=== PATIENT | male | born 1980 | race Caucasian/White ===

== ENCOUNTER 2025-10-09 16:16 | Inpatient (IN) | payer OTHER, SELFPAY ==
[2025-10-09] VITALS (15 sets, daily range): BP systolic 110–138; BP diastolic 78–110
--- NOTE | 2025-10-09 13:07 | ED.GENMED ---
History of Present Illness
General
Chief Complaint: Chest Pain
Source: patient
Exam Limitations: none
Time Seen by Provider: 10/09/25 13:00
Nursing documentation reviewed up to this point in time: agreed with
History of Present Illness
History of Present Illness:
Note:
CHIEF COMPLAINT(S)
Chest pain
HISTORY OF PRESENT ILLNESS
The patient is a 48-year-old male who presents with complaints of chest pain. He reports that the pain started last week at night and has been persistent almost every day since then. He mentions that today, he visited his workplace, feeling the need
to leave due to the discomfort. Currently, he describes the pain as being located around his ribs, explaining that it particularly hurts when he rolls his head back against a board. He experiences no pain when the area is palpated, and he states
that he doesn�t experience chest pain continuously at the moment; instead, it presents with certain movements. The patient denies any pain at rest that is ongoing. He also reports some discomfort that feels like heartburn, though he is uncertain as
he has never had heartburn before. He has attempted self-medication with ibuprofen. He denies smoking or regular alcohol consumption and has presumably had prior electrocardiograms (EKGs).
PAST MEDICAL AND SURIGICAL HISTORY
The patient reports taking aspirin currently and has a vague mention of a family history concerning heart conditions involving his father, which might suggest some cardiac considerations in his background.
REVIEW OF SYSTEMS
- Cardiovascular: Reports episodic chest pain; describes discomfort around the rib area; pain is exacerbated with certain movements.
- Gastrointestinal: Reports symptoms resembling heartburn.
PHYSICAL EXAM
General: Alert, no acute distress.
Skin: Warm, dry.
Head: Normocephalic, atraumatic.
Neck: Supple, trachea midline.
Eyes, Ears, Nose, Mouth and Throat: Oral mucosa moist.
Cardiovascular: Normal peripheral perfusion, No edema.
Respiratory: Respirations are non-labored.
Gastrointestinal: Abdomen nondistended.
Back: Normal range of motion, Normal alignment.
Musculoskeletal: Normal range of motion, normal strength.
Neurological: Alert and oriented to person, place, time, and situation. No focal neurological deficit observed.
Psychiatric: Cooperative, appropriate mood and affect.
PLAN
Plans include performing another EKG as the initial one was slightly abnormal, leading to concern though not explicitly indicative of a myocardial infarction. Blood tests have been conducted, and the patient will be given aspirin for treatment.
DIFFERENTIAL DIAGNOSIS
The Differential Diagnosis includes, in no particular order and is not limited to:
1. Musculoskeletal chest pain
2. Gastroesophageal reflux disease (GERD)
3. Costochondritis
4. Angina
5. Myocardial infarction (though initially ruled unlikely with presented acute findings)
6. Pulmonary embolism
7. Pericarditis
8. Aortic dissection
9. Pneumothorax
10. Esophageal spasm
EKG
My independent EKG interpretation is:
- Rhythm: Sinus tachycardia
- Heart Rate: 130 bpm
- Occasional premature ventricular contractions (PVCs) noted
- [place]: Not specified
- No notable intervals provided ([place] interval, QRS duration, QT interval)
- No specific ST segment changes or T wave inversions mentioned
- Additional abnormalities noted: Possible 'civic-esque' abnormality, details not specified
Disposition:
SUMMARY OF ENCOUNTER
The patient presented to the emergency department with complaints of chest pain. An EKG was performed, which indicated sinus tachycardia with occasional premature ventricular contractions (PVCs). Due to concerns of a potential cardiac condition, a
cardiology evaluation was conducted by Dr. Nieves. Based on initial evaluations and the patients symptoms, the decision was made to admit the patient to the hospitals intensive vascular unit (IVU) under the hospitalist service for further
monitoring and management.
DISPOSITION
Admit to IVU, hospitalist service.
ASSESSMENT
The patients presentation is suggestive of a cardiovascular condition, possibly an acute coronary syndrome, requiring further evaluation and management in a hospital setting.
EMERGENCY TREATMENTS ADMINISTERED
Heparin was administered as part of the initial management to address potential thromboembolic risks.
MANAGEMENT OF THE PATIENTS CARE WAS DISCUSSED WITH
Consultation was carried out with Cardiology, specifically Dr. Zimmerman, for evaluation in the emergency department.
PLAN
The patient will be admitted to the intensive vascular unit for continuous monitoring. Further evaluations and interventions will be conducted based on the evolving clinical picture and cardiology recommendations.
MEDICAL DECISION MAKING
-Complexity of Data Reviewed: Chronic conditions affecting care. The differential diagnoses considered include musculoskeletal chest pain, gastroesophageal reflux disease (GERD), costochondritis, angina, myocardial infarction, pulmonary embolism,
pericarditis, aortic dissection, pneumothorax, and esophageal spasm.
-Data:
Category 1
My independent interpretation of EKG indicates sinus tachycardia with occasional PVCs.
Category 3
Discussion of management with Dr. Zimmerman, Cardiology, regarding further evaluation and management in the emergency department.
-Risk:
Prescription medication was administered (Heparin) and [id number] consultation due to the suspected acute coronary syndrome and the need for further monitoring in IVU.
DIAGNOSIS
NSTEMI
Past History
Past History
ED Past Medical History: None and Other (migraines. Has seen Dr. Morfin in the past)
Social History
Personal: Single
Living: with family
Employment: Employed
Phy Exam
Physical Exam
Physical Exam:
.
Scores
Heart Score for Chest Pain Patients
STEMI patient?: No
History: Highly Suspicious
ECG: Nonspecific Repolarization
Age: >45 - <65 years
Risk Factors: >/= 3 Risk Factors or History of CAD
Troponin: >/= 3 x Normal Limit
Heart Score for Chest Pain Patients: 8
Heart Score Risk: 72.7 % MACE over next 6 weeks
Course
Orders/Labs/Results
Orders:
Orders
10/09/25
Electrocardiogram (*1) Routine
Comment: DONE
Electrocardiogram (*1) Stat
Comment: DONE
10/09/25 12:28
EKG [Electrocardiogram (*1)] Urgent
Reason for Study: Chest Pain
EKG- Treatment ONCE
10/09/25 12:54
Complete Blood Count/With Diff Urgent
Comprehensive Metabolic Panel Urgent
Prothrombin Time Urgent
Troponin I Urgent
10/09/25 13:02
Electrocardiogram (*1) Urgent
EKG- Treatment ONCE
10/09/25 13:08
Aspirin Chewable [Low Strength Aspirin] 324 mg PO NOW STA
10/09/25 13:09
CR Chest Portable - 1 View Urgent
Comment:
Reason For Exam: right side chest pain, fall
Reason Study Needs to be Portable: Patient Unstable
10/09/25 13:42
EKG- Treatment ONCE
10/09/25 13:43
Electrocardiogram (*1) Urgent
10/09/25 14:10
Heparin 4,000 units IV NOW STA
Pharmacy Request to Place See Dose Instructions PO NOW STA
Discontinue all Active Warfarin orders?: Yes
Nursing to Place Non Medication Order As Directed
Physician Order: PTT 6 hours after initial start of Heparin infusion
10/09/25 14:15
Heparin 62117 Units/250 ml 25,000 units in 250 ml IV PER PROTOCOL
Weight to be used for heparin protocol in kilograms (kg):: 70
Protocol:: Cardiac Tx/Acute Coronary
PTT Goal Range to be used:: PTT 73 to 111 seconds
Order type:: Initial
INITIAL Infusion Dose (UNITS/KG/hr) & then follow protocol:: 15 units/kg/hr
Infusion Dose in UNITS/hr & then follow protocol (UNITS/hr):: 1,050
INFUSION RATE in mL/hr & then follow protocol (mL/hr):: 10.5
PTT less than or equal to 64 seconds:: Increase rate by 200 units/hr (+ 2 mL/hr)
PTT 64.1 to 72.9 seconds:: Increase rate by 100 units/hr (+ 1 mL/hr)
PTT 73 to 111 seconds:: Target Range. No change in rate.
PTT 111.1 to 130.9 seconds:: Decrease rate by 100 units/hr (- 1 mL/hr)
PTT 131 to 199.9 seconds:: HOLD for 1 hr. Then decrease rate by 200 units/hr (- 2 mL/hr)
PTT greater than or equal to 200 seconds:: HOLD for 2 hrs & Notify Provider. Then decrease by 200 units/hr (-
2 mL/hr)
Lab follow-up:: Each change, PTT q6h until 2 consecutive are therapeutic. Then PTT
daily.
10/09/25 14:33
CARDIOLOGY CONSULT Routine
Consulting Provider: Talib Nieves
Was physician already notified: Yes
10/09/25 14:43
PTT Urgent
Comment: Obtain baseline before beginning heparin infusion if not already collected
10/09/25 15:[address] See Dose Instructions IV DIRECTED
10/09/25 15:32
Admit/Transfer Patient As Directed
Co-Sign Provider:
Level of Care: Inpatient admission
Assign to:: IVU
Physician / Group: Hospitalist
Diagnosis: NSTEMI
Reason for Hospitalization: NSTEMI
Expected length of stay greater than two midnights?: Yes
ELOS- Estimated Length of Stay in days: 3
I certify the patient meets the requirements for IP care: Yes
PRN Pain Medication Management As Directed
May give lesser potent ordered pain med per pt: Yes
preference::
Protocol:: Medication orders for pain may be administered in a
manner that supports deferring to patient preference
when the pt is:
- Requesting an ordered lesser potent pain medication.
Least to most potent pain medications are defined
as: acetaminophen < NSAID < tramadol < opioids
(morphine, oxycodone, hydromorphone).
- Requesting a lesser dose of the same medication IF
ORDERED.
- Requesting a less intrusive route of administration
if both routes are prescribed by the provider (PO <
IV).
10/09/25 15:35
Code Status As Directed
Resuscitation Status: Full Code
10/09/25 15:38
Urine Drug Abuse Screen Routine
Abnormal Lab Results
10/09/25
12:54
RBC 4.64 L 10^6/uL
(4.70-6.10)
MCH 31.5 H pg
(27.0-31.0)
Absolute Neuts (auto) 6.8 H 10^3/uL
(1.4-6.5)
Absolute Monos (auto) 0.7 H 10^3/uL
(0.1-0.6)
Troponin I 0.566 H* ng/ml
10/09/25 12:54
10/09/25 12:54
Vital Signs
Initial and Last Documented VS:
Initial Vital Signs
Temp Pulse Resp BP Pulse Ox
98.5 F 86 16 132/97 100
10/09/25 12:35 10/09/25 12:35 10/09/25 12:35 10/09/25 12:35 10/09/25 12:35
Last Documented Vital Signs
Temp Pulse Resp BP Pulse Ox
98.5 F 72 17 120/88 98
10/09/25 12:35 10/09/25 14:00 10/09/25 14:00 10/09/25 14:00 10/09/25 14:00
*Pulse Oximetry
SaO2: 100
Oxygen Mode of Delivery: Room air
Patient hypoxic: no
*Critical Care Note
Total Time (30-74mins, 75-104mins- exclusive of procedures): 30
comment:
Critical care statement: A total of 30 minutes of critical care time was provided for this patient. This includes management of unstable vital signs, evaluation of the patient at bedside, reviewing the patient's pertinent medical records, discussion
with consultants, review of old EKGs and review of pertinent medical records. This time with separate from time utilized to perform the aforementioned documented procedures
ED Attending Note
-
Portions of this chart may have been created with voice recognition software.� Occasional wrong word or��sound alike� substitutions may have occurred due to the inherent limitations of voice recognition software.
Discharge Plan
Departure
Patient Disposition: Admit
Date of Disposition: 10/09/25
Time of Disposition: 13:48
Admit to: IVU
Presentation/result/management discussed w/ accepting MD/DO: Hospitalist
Patient with high blood pressure during this ER visit?: Yes
Condition: Fair
Discharge Problem:
Acute non-ST elevation myocardial infarction (NSTEMI)
Prescriptions:
No Action
ibuprofen [Advil] 200 mg Tablet
40 mg PO BIDPRN PRN (Reason: mild pain)
omeprazole 20 mg Tablet,Delayed Release (Dr/Ec)
40 mg PO DAILYPRN PRN (Reason: gerd)
Referrals:
NONE,* [Family Provider, Internal Medicine]
Interventions
Interventions:
*Risk Screen - Suicide Last Done: 10/09/25 12:35
*General Assessment Last Done: 10/09/25 12:35
*Neglect/Abuse Screening Last Done: 10/09/25 12:35
[facility] Risk Assessment Tool Last Done: 10/09/25 12:27
ED- Cardiac Assessment Last Done: 10/09/25 14:15
Discharge Date and Time
Print Language: CYPRIOT
[2025-10-09 13:12] LABS: Hematocrit 42.3 % (39.0-52.0); Hemoglobin 14.6 g/dL (13.0-18.0); Mean Corp Hgb Conc. 34.5 g/dL (33.0-37.0); Mean Corpuscular Volume 91.2 fL (80.0-94.0); Nucleated Red Blood Cells % 0 % (-); Platelet Count 282 10^3/uL (130-400); Red Cell Dist. Width 13.3 % (11.5-14.5)
[2025-10-09 13:21] LABS: INR 0.95; PT 12.8 Sec (11.4-14.6)
[2025-10-09 13:26] LABS: ALT (SGPT) 20 U/L (0-50); AST (SGOT) 29 U/L (17-59); Albumin 4.5 g/dl (3.5-5.0); Alkaline Phosphatase 99 U/L (38-126); Blood Urea Nitrogen 10 mg/dl (9-20); Calcium 9.1 mg/dl (8.4-10.2); Carbon Dioxide 27 mmol/L (22-30); Chloride 103 mmol/L (98-107); Glucose 93 mg/dl (70-99); Potassium 4.3 mmol/L (3.5-5.1); Sodium 137 mmol/L (135-145); Total Protein 7.4 g/dl (6.3-8.2); eGFR > 60.00
[2025-10-09] MEDS: LOW STRENGTH ASPIRIN 324 MG PO (13:29)
[2025-10-09 13:41] LABS: Troponin I 0.566 ng/ml
--- NOTE | 2025-10-09 14:41 | CON.CAR ---
Addendum entered and electronically signed by Talib Nieves MD 10/09/25 15:48:
I saw and examined the patient.
The REAL ESTATE REP or PA's note was reviewed and I agree with the note.
Comment: General: Well developed, well nourished in NAD.
Neck: Supple, no JVD, HJR, carotids +2 B/L, no bruits bilaterally.
Heart: Non displaced PMI, RRR, no murmurs, No S3, S4, no rubs.
Lungs: Clear to auscultation bilaterally, no wheeze, rhonchi, rubs bilaterally,
normal expiratory phase.
Extremities: No clubbing, cyanosis or edema bilaterally.
Neuro: Grossly nonfocal, awake, alert and oriented x3
Guido has a history of tobacco abuse, family history of CAD. He presents with chest discomfort radiating to his throat. He left work twice this week due to discomfort. He felt poorly today and went to work and went to the hospital for evaluation.
Troponin was 0.566.
He presents with unstable angina and non-STEMI. ECG with anterior ST-T wave changes. Explained risk benefits of catheterization and stenting in detail and agrees to proceed. He has been started on IV heparin and is pain-free. Manual treatment
depend results of catheterization. Discussed with primary service and ER attending. Discussed with patient's mother at bedside who is an OB nurse at [employer]
Original Note:
Medical History
-
Chief Complaint: Chest pain
History of Present Illness:
45-year-old male, smoker, family history of CAD, depression as a teenager, presents with 1 week history of intermittent chest pain described as substernal pressure radiating to throat. No associated symptoms. Denies pain triggered by exertion.
Has left work twice this week due to discomfort from pain and thought about coming to ED last night but then felt better. Woke up today and had recurrent substernal CP radiating to throat and presented to ED. He was able to ride his bike to
hospital without worsening symptoms. He was administered aspirin 324 mg. Troponin 0.566. EKG: Normal sinus rhythm anterolateral ST abnormality-? Brugada pattern. Heparin drip started. Patient currently chest pain-free.
Past medical history
Depression as teenager with inpatient admission
Current smoker including cigarettes, vape, marijuana
Alcohol use
Past Medical History
Past Medical History: Other
Past Surgical History: None
Social History
Tobacco: Vaping
Alcohol: Binge Drinker (10-12 beers on weekends)
Drug: Marijuana
Employment: Employed ([employer])
Allergies / Home Medications
Allergy/AdvReac Type Severity Reaction Status Date / Time
bees Allergy Swelling Uncoded 10/09/25 12:35
�Medication �Instructions �Recorded �Confirmed �Type
ibuprofen 200 mg tablet (Advil) 40 mg PO BIDPRN PRN mild pain 10/09/25 10/09/25 History
omeprazole 20 mg tablet,delayed 40 mg PO DAILYPRN PRN gerd 10/09/25 10/09/25 History
release
Review of Systems
-
History Source: Patient
All other systems: Negative unless noted
Physical Exam
Vital Signs
Temp Pulse Resp BP Pulse Ox
98.5 F 72 17 120/88 98
10/09/25 12:35 10/09/25 14:00 10/09/25 14:00 10/09/25 14:00 10/09/25 14:00
Lab Results
10/09/25 12:54
10/09/25 12:54
Troponin I 0.566 ng/ml H* 10/09/25 12:54
GEN: No distress, awake, Ox3
HEENT: supple, anicteric, mmm
LUNGS: ?rales at bases
CV: Reg, S1/S2, no murmur
ABD: soft, BS+, NT/ND
EXT: No edema
NEURO: Gross non-focal
SKIN: No rash
Impression / Plan
-
PCP:
Does not follow with cardiology
Impression:
NSTEMI
1 week history of chest pain radiating to neck
Elevated troponin
Abnormal EKG
Current smoker including cigarettes, vaping, marijuana
Alcohol use with binge drinking
Family history CAD
Former depression
Plan:
45-year-old male with 1 week history of intermittent substernal chest pressure radiating to throat with increasing frequency. Not associated with exertion. Presented to ED today and troponin elevated with non-ST elevation EKG abnormalities on EKG.
- Aspirin 324 mg administered in ED
- Heparin drip started
- N.p.o. for left heart cath today
- Currently chest pain-free
- Counseling on smoking cessation and alcohol reduction
-check FLP
-EKG with questionable Brugada pattern - discuss with EP
Data Reviewed
-
EKG: Tracing Personally Visualized and interpreted
Medical Tests (Nuc Med, Echo etc): Image Personally Visualized and interpreted
Labs: Labs Reviewed by me
[2025-10-09 15:00] LABS: APTT 28.6 Sec (23.4-35.0)
[2025-10-09] MEDS: HEPARIN 25000 UNITS/250 ML IV (15:17)
[2025-10-09] MEDS: HEPARIN 4000 UNITS IV (15:17)
--- NOTE | 2025-10-09 15:43 | HPS.HSE ---
Addendum entered and electronically signed by Rola Boswell MD 10/09/25 16:27:
Pt seen with residents.
HPI: 45-year-old male with past medical history of anxiety and migraines presented to the ED with recurrent chest discomfort, started about 1 week [employer].
He described the pain in the center of his chest, non-radiating, with episodes lasting anywhere from 5 minutes to many hours. He tried to get some Prilosec because he thought his symptoms were caused by GERD.
He presented to the ED due to worsening chest discomfort.
A/P:
# Chest discomfort concern for ACS
Admission troponin at 0.566, cont to trend until peak
EKG showed ST, T wave changes
s/p loading dose of aspirin
Cont heparin drip
Card on board, plan for cardiac cath
Check echo
Check Lipid panel
Check UDS for completeness sake
# Right flank pain likely MSL from recent fall onto a stack of firewood while he was chopping outside
Bruise noted on right flank and pain reproducible with palpation. Vitals are stable and patient looks comfortable
Agree with lidocaine patch over bruised area
DVT - Heparin drip currently
Full Code
Original Note:
Family Physician
-
Family Physician: * NONE
Chief Complaint
-
Chest pressure
History of Present Illness
45-year-old male with past medical history of anxiety and migraines presents to the ED with chest discomfort. He had his first episode of his chest discomfort last week. They started to come and go not associated with exercise. Yesterday afternoon,
he had the chest pressure the entire afternoon. He described the pain in the center of his chest, non-radiating, with episodes lasting anywhere from 5 minutes to many hours. He cannot give a number on a scale of 1-10 because it is so 'weird.'
Stretching and leaning back makes it feel better. Nothing he has noticed made it worse. Yesterday, he tried to get some Prilosec because he thought his symptoms were caused by GERD. This morning, the pain recurred and after he arrived at work, he
decided to come in to the ED because the pressure was persistent.
Of note, the patient recently fell while cutting wood in his back yard and bruised his right flank. He states his back pain is reproducible with palpation and feels musculoskeletal.
In the ED, he said his pain went away. His vitals were stable, troponin was 0.566 and EKG showed some small ST elevations in V1-V3 and T wave inversions. He was given a loading dose of aspirin, started on a heparin drip and cardiology was consulted
for possible NSTEMI.
Medical History
Past Medical History
Past Medical History: Reports Other (anxiety, migraines )
Past Surgical History: Reports None
Social History
Tobacco: Smoker (1 ppd since age 14)
Alcohol: Binge drinker (Binge on weekends, not during the week )
Drug: Marijuana and Other (No cocaine or other)
Employment: Employed ([employer] )
Family History
Family History: Other (Father - [place] age 42, HLD. Brother - lung cancer. Sister - HLD, )
Allergies / Home Medications
Allergies reflects when Allergies were last updated in [facility].
Home Medications with original date entered in [facility]
Allergy/Medication List:
Allergies
Allergy/AdvReac Type Severity Reaction Status Date / Time
bees Allergy Swelling Uncoded 10/09/25 12:35
Home Medications
ibuprofen 200 mg tablet (Advil) 40 mg PO BIDPRN PRN mild pain 10/09/25
omeprazole 20 mg tablet,delayed release 40 mg PO DAILYPRN PRN gerd 10/09/25
Review of Systems
-
History Source: Patient
Constitutional: Reports No Symptoms
EENT: Reports No Symptoms
Respiratory: Reports No Symptoms
Cardiac: Reports Chest Pain
Abdomen/GI: Reports No Symptoms
: Reports No Symptoms
Musculoskeletal: Reports Muscle Pain (Right flank )
Neurological: Reports No Symptoms
Psych: Reports No Symptoms
Physical Exam
Vital Signs
Vital Signs
Temp Pulse Resp BP Pulse Ox
98.5 F 72 17 120/88 98
10/09/25 12:35 10/09/25 14:00 10/09/25 14:00 10/09/25 14:00 10/09/25 14:00
Physical Exam
General: No Apparent Distress
HEENT: NormoCephalic
Respiratory: Clear
Cardiac: S1/S2, Regular Rhythm and Other (No carotid bruits appreciated )
GI: Soft, Non Tender, Non Distended and Normal Bowel Sounds
Musculoskeletal: No Cyanosis, No Edema and Other (Bruise on right flank, pain reproducible on palpation)
Skin: Warm and Dry
Neuro: AO x 3
Psych: Calm
Laboratory Results
-
10/09/25 12:54
10/09/25 12:54
Laboratory Results
PT 12.8 Sec (11.4-14.6) 10/09/25 12:54
INR 0.95 10/09/25 12:54
APTT 28.6 Sec (23.4-35.0) 10/09/25 14:43
Total Bilirubin 0.5 mg/dl (0.2-1.3) 10/09/25 12:54
AST 29 U/L (17-59) 10/09/25 12:54
ALT 20 U/L (0-50) 10/09/25 12:54
Alkaline Phosphatase 99 U/L (38-126) 10/09/25 12:54
Troponin I 0.566 ng/ml H* 10/09/25 12:54
Impression/Plan
-
IMPRESSION:
45-year-old male with no significant past medical history presenting with chest pain, elevated troponin and abnormal EKG concerning for NSTEMI.
PLAN:
NSTEMI
-- Substernal chest pressure, troponin 0.566, slight ST elevation in anterior leads with T wave inversions
-- Heparin drip started in ED
-- Loading dose of aspirin provided
-- Cardiology consulted
-- Admit to IVU
-- Trend troponins
-- Trend EKGs
-- Cardiac echo
-- UDS
-- Lipid panel
-- NPO for cath
-- Likely cardiac cath this afternoon
Right flank pain
-- Recent fall onto a stack of [employer] while he was chopping outside
-- Bruise noted on right flank and pain reproducible with palpation
-- Vitals are stable and patient looks comfortable -incredibly low clinical suspicion for aortic dissection
-- Lidocaine patch over bruised area
DVT - Heparin drip
Full Code
NPO
--- NOTE | 2025-10-09 16:37 | CM ---
Addendum entered by Bella Wise RN 10/09/25 16:59:
[facility] in [place] has it in stock. I will place it in the patient's profile
Original Note:
Pricing on Brilinta through the patient's medicaid plan, ID#[id number] # [phone], is covered at $0 copay. Brilinta is preferred brand. It is currently not in stock at the patient's [facility] and will not be available until Sunday if
called in today
[2025-10-09 16:59] LABS: ACT-LR - POC 256 Seconds (116-155)
[2025-10-09 17:07] LABS: ACT-LR - POC 314 Seconds (116-155)
[2025-10-09] MEDS: EFFIENT 60 MG PO (17:30)
[2025-10-09 17:34] LABS: ACT-LR - POC 292 Seconds (116-155)
--- NOTE | 2025-10-09 17:56 | ITS.CL.CATH ---
Addendum entered and electronically signed by Ester Moyer MD 10/09/25 22:24:
Addendum:
Right coronary artery (RCA): Large caliber dominant vessel with minimal luminal irregularities.
HM
Original Note:
[employer] Sales Counter Manager - Catheterization
Cardiac Catheterization
Procedure Report:
LEFT HEART CATHETERIZATION AND CORONARY INTERVENTION
Date of Procedure: October 09, 2025
Referring: Talib Nieves MD
PROCEDURES:
1. Left heart catheterization, coronary angiogram.
2. Moderate sedation.
3. Successful percutaneous coronary artery intervention of a hazy 80% proximal LAD stenosis (KEITH III, type B) with one 3.5 x 12 mm Medtronic [place] frontier drug-eluting stent, postdilated using IVUS guidance with 3.5mm NC balloon at high pressure
with an excellent angiographic result.
4. Intravascular ultrasound (IVUS)
INDICATION: NSTEMI
ACCESS: Right radial artery, 6Fr. sheath, under US guidance.
HEMODYNAMICS : (mmHg)
AO (s/d) : 105/69
LVEDP : 14
No significant gradient across the aortic valve to suggest aortic stenosis.
CORONARY FINDINGS
Dominance: Right
Left Main Trunk (LMT):� Large caliber vessel that gives rise to the LAD, ramus intermedius and LCx branches and is free of angiographic disease.
Left Anterior Descending Artery (LAD):� Large caliber vessel that gives off a medium caliber first major diagonal and a large caliber scdon diagonal branches as it courses along the anterior inter-ventricular groove before wrapping around the
cardiac apex. The proximal LAD has a hazy 80% stenosis which is likely culprit for presenting NSTEMI.
Ramus intermedius: Large caliber vessel with proximal 30-40% stenosis.
Left Circumflex Artery (LCx):� Medium caliber vessel that gives off a several small caliber obtuse marginals, a medium caliber OM and small posterolateral branches.� The LCx has mild luminal disease
CORONARY INTERVENTION: We then proceeded with PCI of the LAD.� An EBU 3.75 guide catheter was positioned at the origin of the left main and an 0.014� RunThrough wire was navigated into the distal LAD.� The severe 80% stenosis (KEITH III, type B) was
pre-dilated with a 3.0 balloon and then stented with a 3.5 x 18 mm Seward [place] drug-eluting stent that was post-dilated with a 3.5 mm NC balloon. We then performed intravascular ultrasound that showed excellent stent apposition and expansion
without proximal or distal edge dissection. There was 0% residual stenosis of the stented segment and preserved KEITH III flow at completion angiography.
SEDATION: 47 minutes of procedural sedation was utilized. IV Midazolam and IV Fentanyl were administered. An independent medical support assistant was present to assist with and help manage the patient's level of consciousness and physiologic status.
RADIATION SUMMARY: Fluoro Time (min): 11.4, Dose (mGy): 378.7, DAP (Gy.cm2) : 19.7
Closure Device: There were no immediate intra-procedural complications. The sheath was pulled in the golf course laborer and a vascular-band applied to the right wrist for radial artery hemostasis using the patent hemostasis technique.
CONCLUSIONS
1. Successful percutaneous coronary artery intervention of a hazy 80% proximal LAD stenosis (KEITH III, type B) with one 3.5 x 12 mm Medtronic [place] frontier drug-eluting stent, postdilated using IVUS guidance with 3.5mm NC balloon at high pressure
with an excellent angiographic result.
2. LVEDP 14mmHG
RECOMMENDATIONS
1. Wean radial band per protocol. Monitor right hand perfusion and for bleeding from the radial site following removal of the vascular-band following trans-radial access.
2. Continue aggressive medical therapy and risk factor modification for secondary CAD prevention.
3. Continue ASA 81 mg daily for life.
4. Continue Prasugrel for at least 12 months of uninterrupted dual anti-platelet therapy given drug-eluting stent (RAQUEL) implantation to mitigate the risk of stent thrombosis. This is not to be stopped for any reason without the guidance of a
button and buckle maker.
5. Hydrate with normal saline to mitigate the risk of contrast-induced acute kidney injury.
6. Referral for outpatient cardiac rehab.
7. Echo to assess biventricular function.
Ester Moyer MD, FACC, [facility]
Copy to: Talib Nieves MD
[2025-10-09 18:09] LABS: Troponin I 1.200 ng/ml
[2025-10-09] MEDS: LIDOCAINE 4% PATCH 1 PATCH TOPICAL (18:46)
[2025-10-09] MEDS: LIPITOR 80 MG PO (18:53)
--- NOTE | 2025-10-09 19:13 | PTCARENOTE ---
Pt received post cath at 1755. Right radial band intact, site WNL. Denies any chest pain or sob. Room air sat 97%. C/o of back pain with movement from a recent fall. Lidocaine patch placed as ordered. SR, rate in the 70's to 80's.
[2025-10-09 20:47] LABS: HDL Cholesterol 72 mg/dl; LDL Cholesterol, Calculated 80 mg/dl; Very Low Density Lipoprotein 20 mg/dl (0-30)
[2025-10-10 00:54] LABS: Troponin I 1.670 ng/ml
[2025-10-10 05:25] VITALS: BP 124/90
[2025-10-10] MEDS: REMOVE LIDOCAINE PATCH 1 PATCH REMOVE (05:32)
[2025-10-10 05:40] LABS: Hematocrit 38.7 % (39.0-52.0); Hemoglobin 13.5 g/dL (13.0-18.0); Mean Corp Hgb Conc. 34.9 g/dL (33.0-37.0); Mean Corpuscular Volume 90.0 fL (80.0-94.0); Platelet Count 241 10^3/uL (130-400); Red Cell Dist. Width 13.3 % (11.5-14.5)
--- NOTE | 2025-10-10 06:06 | PTCARENOTE ---
Pt NSR on monitor, VSS. Pt Denies chest pain. abnormal EKG reported to ADJUNCT PSYCHOLOGY FACULTY MEMBER
[2025-10-10 06:16] LABS: ALT (SGPT) 17 U/L (0-50); AST (SGOT) 26 U/L (17-59); Albumin 4.0 g/dl (3.5-5.0); Alkaline Phosphatase 93 U/L (38-126); Blood Urea Nitrogen 20 mg/dl (9-20); Calcium 8.8 mg/dl (8.4-10.2); Carbon Dioxide 20 mmol/L (22-30); Chloride 105 mmol/L (98-107); Estimated Creatinine Clearance 89 ml/min; Glucose 102 mg/dl (70-99); Potassium 4.1 mmol/L (3.5-5.1); Sodium 134 mmol/L (135-145); Total Protein 6.7 g/dl (6.3-8.2); Troponin I 1.320 ng/ml; eGFR > 60.00
[2025-10-10 07:07] VITALS: BP 116/84
[2025-10-10 08:23] LABS: Glycohemoglobin (HgbA1c) 5.4 % (4.0-5.9)
[2025-10-10] MEDS: PROTONIX 40 MG PO (08:33)
[2025-10-10] MEDS: LOW STRENGTH ASPIRIN 81 MG PO (08:33)
[2025-10-10] MEDS: TYLENOL 1000 MG PO (08:34)
[2025-10-10] MEDS: EFFIENT 10 MG PO (09:02)
--- NOTE | 2025-10-10 09:53 | W.PN.HOSP.TC ---
Addendum entered and electronically signed by Rola Boswell MD 10/10/25 16:44:
Total DC time 40 minutes
Addendum entered and electronically signed by Rola Boswell MD 10/10/25 15:26:
Discussed case with resident
HPI: 45-year-old male with past medical history of anxiety and migraines presented to the ED with recurrent chest discomfort, started about 1 week ORE CHARGER.
He described the pain in the center of his chest, non-radiating, with episodes lasting anywhere from 5 minutes to many hours. He tried to get some Prilosec because he thought his symptoms were caused by GERD.
He presented to the ED due to worsening chest discomfort.
A/P:
# Chest discomfort 2/[address], T wave changes
troponin peaked at 1.6
s/p cath 10/09: showed 80% LAD stenosis, s/p PCI
Cont DAPT ASA with Prasugrel per Card for at least 12 months
Extensive counseling regarding smoking cessation. Patient declined outpatient nicotine therapy
Patient was started with empiric Lipitor 80 mg, continue going forward
LDL noted at 80
# Right flank pain likely MSL from recent fall onto a stack of firewood while he was chopping outside
Bruise noted on right flank and pain reproducible with palpation. Vitals are stable and patient looks comfortable
Agree with lidocaine patch over bruised area
Original Note:
Today's Communication/Plan
-
Discharged on prasugrel, aspirin and atorvastatin with instructions to follow-up with cardiology and smoking cessation
Assessment / Plan
Assessment / Plan
IMPRESSION:
45-year-old male with no significant past medical history presenting with chest pain, elevated troponin and abnormal EKG concerning for NSTEMI.
PLAN:
NSTEMI
-- Substernal chest pressure, troponin 0.566, slight ST elevation in anterior leads with T wave inversions
-- Heparin drip started in ED
-- Loading dose of aspirin provided
-- Cardiology consulted
-- Admit to IVU
-- Echo revealed 55% ejection fraction with mid anteroseptal, anterior, and inferoapical hypokinesis
-- Cardiac cath revealed 80% stenosis of LAD -drug-eluting stent placed
-- Prasugrel for the next 12 months, aspirin daily indefinitely
-- Started on atorvastatin 80
-- LDL was surprisingly not significantly elevated at 80, Hga1c 5.4
-- Smoking cessation highly emphasized - he is not interested in a nicotine patch or gum at this time - he emphasized that he plans to quite on his own.
-- Discharge today with instructions to follow-up with cardiology
Right flank pain
-- Recent fall onto a stack of firewood while he was chopping outside
-- Bruise noted on right flank and pain reproducible with palpation
-- Vitals are stable and patient looks comfortable -incredibly low clinical suspicion for aortic dissection
-- Lidocaine patch over bruised area
DVT - SCD
Full Code
Anticipated Discharge: Today
Subjective/Interval History
-
Date of Service: October 10, 2025
Had a difficult time sleeping overnight due to his back pain.
Objective Data
-
Labs:
Laboratory Results
10/10/25
05:28
WBC 9.5
Hgb 13.5
Hct 38.7 L
Plt Count 241
Sodium 134 L
Potassium 4.1
Chloride 105
Carbon Dioxide 20 L
BUN 20
Creatinine 1.0
Glucose 102 H
Calcium 8.8
Total Bilirubin 0.5
AST 26
ALT 17
Alkaline Phosphatase 93
Vital Signs:
Vital Signs
Temp Pulse Resp BP Pulse Ox
98.1 F 74 18 116/84 98
10/10/25 07:08 10/10/25 07:30 10/10/25 07:08 10/10/25 07:07 10/10/25 08:36
I&O
10/09/25 10/10/25 10/11/25
06:59 06:59 06:59
Intake Total 400 / 400
Balance 400 / 400
Review of Systems
-
History Source: Patient
Respiratory: Reports No Symptoms
Cardiac: Reports No Symptoms
Abdomen/GI: Reports No Symptoms
Musculoskeletal: Reports Muscle Pain
Neuro: Reports No Symptoms
Physical Exam
-
General: No Apparent Distress
HEENT: Normocephalic
Respiratory: Clear to Auscultation
Cardiac: Regular Rhythm and S1/S2
GI: Soft, Nontender, Nondistended and Normal Bowel Sounds
Musculoskeletal: No Clubbing and No Cyanosis
Skin: Warm and Dry
Neuro: AO x 3
Psych: Calm
--- NOTE | 2025-10-10 11:43 | W.PN.CARDCBS ---
Addendum entered and electronically signed by Talib Nieves MD 10/10/25 12:23:
I saw and examined the patient.
The CARE TRANSITIONS MANAGER or PA's note was reviewed and I agree with the note.
Comment: General: Well developed, well nourished in NAD.
Neck: Supple, no JVD, HJR, carotids +2 B/L, no bruits bilaterally.
Heart: Non displaced PMI, RRR, no murmurs, No S3, S4, no rubs.
Lungs: Clear to auscultation bilaterally, no wheeze, rhonchi, rubs bilaterally,
normal expiratory phase.
Extremities: No clubbing, cyanosis or edema bilaterally.
Neuro: Grossly nonfocal, awake, alert and oriented x3.
Stable cardiology status for discharge. Echocardiogram with normal LV function and regional wall motion as noted on report. He is advised to be compliant with medications. Follow-up has been arranged. Discussed with primary service
Original Note:
Today's Communication / Plan
-
Continue DAPT with prasugrel and aspirin, uninterrupted x 1 year status post new proximal LAD RAQUEL
Post NM echo with preserved LV function
Cardiac rehab
cardiology f/u arranged
Impression / Plan
-
PCP:
No prior rivet tester
Impression:
NSTEMI
Status post proximal LAD stent
CAD
Abnormal EKG
Current smoker including cigarettes, vaping, marijuana
Alcohol use with binge drinking
Family history CAD
Former depression
Plan:
45-year-old male with 1 week history of intermittent substernal chest pressure radiating to throat with increasing frequency. Presented to ED 10/10/2025 and troponin elevated. Diagnosed non-ST elevation NM. Peak troponin 1.6. Urgent cath
10/10/2025 revealed 80% proximal LAD stenosis, likely culprit lesion for non-ST elevation NM. Also had 30 to 40% disease in proximal ramus
-Continue aspirin 81 mg daily for life
-Continue prasugrel 10 mg daily for at least 12 months of uninterrupted dual antiplatelet therapy to reduce risk of stent thrombosis. Patient advised that he should consult with rivet tester if ever asked to stop antiplatelets.
-PPI on DAPT
-Atorvastatin 80 mg daily started with goal LDL less than 55. LDL 80 prior to starting lipid-lowering therapy
-Post NM echo with normal LV function, EF 55%, mild anterior septal, anterior, and inferior apical hypokinesis
-Telemetry personally reviewed: Normal sinus rhythm 60-70 bpm
-manually calculated QTc on 12 lead EKG from [id number]
- Counseling on smoking cessation and alcohol reduction
-Cardiac rehab advised and saw patient this morning
-f/u arranged at [facility] 10/26/25
Progress Note - Ladies Suit Operator
Subjective
Date of Service: October 10, 2025
Denies chest pain
Objective
Labs:
10/10/25 05:28
10/10/25 05:28
Labs
Hgb 13.5 g/dL (13.0-18.0) 10/10/25 05:28
Hct 38.7 % (39.0-52.0) L 10/10/25 05:28
Plt Count 241 10^3/uL (130-400) 10/10/25 05:28
PT 12.8 Sec (11.4-14.6) 10/09/25 12:54
INR 0.95 10/09/25 12:54
APTT 28.6 Sec (23.4-35.0) 10/09/25 14:43
Sodium 134 mmol/L (135-145) L 10/10/25 05:28
Potassium 4.1 mmol/L (3.5-5.1) 10/10/25 05:28
BUN 20 mg/dl (9-20) 10/10/25 05:28
Creatinine 1.0 mg/dL (0.7-1.3) 12/13/25 05:28
Glucose 102 mg/dl (70-99) H 10/10/25 05:28
Troponins
10/09/25 10/09/25 10/09/25
12:54 17:28 17:49
Troponin I 0.566 H* 1.200 H* D Cancelled
10/10/25 10/10/25 10/10/25
00:05 05:28 06:00
Troponin I 1.670 H* D 1.320 H* Cancelled
10/10/25 10/10/25
07:10 11:49
Troponin I Cancelled Cancelled
Vital Signs and I&O:
Vital Signs
Temp Pulse Resp BP Pulse Ox
98.1 F 74 18 116/84 98
10/10/25 07:08 10/10/25 07:30 10/10/25 07:08 10/10/25 07:07 10/10/25 08:36
Vital Signs
Temp Pulse Resp BP Pulse Ox
98.1 F 74 18 116/84 98
10/10/25 07:08 10/10/25 07:30 10/10/25 07:08 10/10/25 07:07 10/10/25 08:36
Intake & Output
10/08/25 10/09/25 10/10/25 10/11/25
06:59 06:59 06:59 06:59
Intake Total 400 / 400
Balance 400 / 400
Physical Exam
Physical Exam
GEN: No distress, awake, Ox3
HEENT: supple, anicteric, mmm
LUNGS: CTA, no wheezes/rales
CV: Reg, S1/S2, no murmur
ABD: soft, BS+, NT/ND
EXT: No edema
NEURO: Gross non-focal
SKIN: No rash
[2025-10-10 11:48] VITALS: BP 123/79
[2025-10-10 13:52] VITALS: BP 128/94
--- NOTE | 2025-10-10 14:46 | PTCARENOTE ---
Pt c/o right posterior rib pain which improved well with tylenol. Pt walked around unit with RN without problem. Pt seen by DR.s Nieves and Akash. Pt given CAD information. Telemetry and IV device removed. Discharge instructions reviewed with pt
and his mother regarding activity and driving restrictions, wound care, medications and their possible side effects, smoking cessation, reporting cares and concerns and follow up appt's. Very good understanding verbalized. Pt escorted out via
wheelchair and discharged to home.
--- NOTE | 2025-10-10 16:22 | W.DCSUMMARY ---
Documented by User: Va Bustos MD, Resident 10/10/25 16:29
Discharge Summary
Discharge Data
Date of Admission: 10/09/25
Date of Discharge: 10/10/25
-
Pending Results: No
Hospital Course
Primary diagnosis:
NSTEMI
Hospital course:
45-year-old male with no significant past medical history presented to the ED with persistent chest discomfort. It started about a week prior with episodes progressively getting worse. In the ED, he was found to have an elevated troponin of 0.[address] changes in V1 through V3. He was provided loading dose of aspirin, started on heparin drip and cardiology was consulted for possible NSTEMI. He was taken for echo which revealed 55% EF with mid anteroseptal, anterior and inferior
apical hypokinesis. He underwent a cardiac cath which revealed 80% stenosis of LAD and a drug-eluting stent was placed. He was started on prasugrel, aspirin and atorvastatin. LDL was 80 and hemoglobin A1c was 5.4. He has a family history of
early cardiac events with his father having an MT at 42 and he is an avid smoker.
Today, patient is clinically stable for discharge. He has been started on aspirin indefinitely, prasugrel for the next 12 months and atorvastatin. He has been instructed to follow-up with cardiology for further evaluation and instructed on the
importance of smoking cessation.
Imaging:
Cardiac catheterization 10/09/25:
CONCLUSIONS
1. Successful percutaneous coronary artery intervention of a hazy 80% proximal LAD stenosis (KEITH III, type B) with one 3.5 x 12 mm Medtronic [place] frontier drug-eluting stent, postdilated using IVUS guidance with 3.5mm NC balloon at high pressure
with an excellent angiographic result.
2. LVEDP 14mmHG
RECOMMENDATIONS
1. Wean radial band per protocol. Monitor right hand perfusion and for bleeding from the radial site following removal of the vascular-band following trans-radial access.
2. Continue aggressive medical therapy and risk factor modification for secondary CAD prevention.
3. Continue ASA 81 mg daily for life.
4. Continue Prasugrel for at least 12 months of uninterrupted dual anti-platelet therapy given drug-eluting stent (RAQUEL) implantation to mitigate the risk of stent thrombosis. This is not to be stopped for any reason without the guidance of a
compliance auditor.
5. Hydrate with normal saline to mitigate the risk of contrast-induced acute kidney injury.
6. Referral for outpatient cardiac rehab.
7. Echo to assess biventricular function.
Echocardiogram 10/09/2025:
SUMMARY
1. Ejection fraction is 55% by Montemayor's method of discs.
2. Normal left ventricular size, wall thickness and systolic function. No regional wall motion abnormalities are seen.
3. There is mid anteroseptal, anterior, and inferoapical hypokinesis.
Discharge Plan
-
Patient Disposition: Home (Routine Discharge)
Discharge Diagnosis/Procedures: Heart attack/NSTEMI s/p angioplasty and stent to Left Anterior Descending artery
Condition: Good
Diet: Low Fat and Low Cholesterol
Activity: No strenuous activity
Driving Restrictions: No driving for 24 hours
Bathing Restrictions: None
Other Services: Cardiac Rehab
Activity Restrictions/Additional Instructions:
Please follow-up with cardiology on 10/26/2025.
You will be required to take aspirin 81 mg daily indefinitely and prasugrel 10 mg daily for the next 12 months.
Please STOP smoking as this was likely one of the main contributing factors to your heart attack.
Instructions: Quitting smoking for adults
Stand Alone Forms: DC Instructions- Cath/EP Lab
Referrals:
[facility]. Cardiac Rehab [Outside] - 11/12/25 8:30 am
Referral Note: Cardiac Rehab Orientation appointment is on 11/12/25 at 8:30am.
The Cardiac Rehab gym is located on the first floor of the [facility].
NONE,* [Family Provider, Internal Medicine]
Brianda Black PA-C [Specified Professional Personl, Cardiology] - 10/26/25 4:00 pm
Prescriptions:
New
prasugrel HCl 10 mg Tablet
10 mg PO DAILY Qty: 30 11RF
atorvastatin 80 mg Tablet
80 mg PO QPM Qty: 30 11RF
aspirin 81 mg capsule
81 mg PO DAILY Qty: 30 0RF
Discontinued
ibuprofen [Advil] 200 mg Tablet
40 mg PO BIDPRN PRN (Reason: mild pain)
omeprazole 20 mg Tablet,Delayed Release (Dr/Ec)
40 mg PO DAILYPRN PRN (Reason: gerd)
Discharge Orders:
Discharge Patient (As Directed); Ordered 10/10/25
Ordered By: Va Bustos
Care Plan Goals
Care Plan Goals:
Problem: Readiness for enhanced knowledge related to diagnosis and treatment plan
Goal: Understand your diagnosis and treatment plan needs, including medications if applicable.
Instructions: Know your diagnosis, underlying causes and treatment plan options, including medications if applicable. Consult with your health care team to learn about your diagnosis and treatment plan, including medications if applicable.
Discharge Date and Time
Discharge Date/Time: 10/10/25 14:40
Print Language: AFGHAN

Documented by User: Rola Boswell MD 10/10/25 16:43
Discharge Summary
Discharge Data
Date of Admission: 10/09/25
Date of Discharge: 10/10/25
Hospital Course
Primary diagnosis:
NSTEMI
Hospital course:
45-year-old male with no significant past medical history presented to the ED with persistent chest discomfort that started about a week prior. In the ED, he was found to have an elevated troponin of 0.[address] changes in V1 through V3.
He was provided loading dose of aspirin, started on heparin drip and sent to the cath lab radiological technologist, which revealed 80% stenosis of LAD which was treated with a drug-eluting stent. He was started on prasugrel, aspirin and atorvastatin. LDL was noted to be at
80. He has been informed to continue dual antiplatelet therapy with aspirin and prasugrel for at least 12 months per cardiology.
Of note, his echo showed EF 55% with mid anteroseptal, anterior and inferior apical hypokinesis.
Imaging:
Cardiac catheterization 10/09/25:
CONCLUSIONS
1. Successful percutaneous coronary artery intervention of a hazy 80% proximal LAD stenosis (KEITH III, type B) with one 3.5 x 12 mm Medtronic [place] frontier drug-eluting stent, postdilated using IVUS guidance with 3.5mm NC balloon at high pressure
with an excellent angiographic result.
2. LVEDP 14mmHG
RECOMMENDATIONS
1. Wean radial band per protocol. Monitor right hand perfusion and for bleeding from the radial site following removal of the vascular-band following trans-radial access.
2. Continue aggressive medical therapy and risk factor modification for secondary CAD prevention.
3. Continue ASA 81 mg daily for life.
4. Continue Prasugrel for at least 12 months of uninterrupted dual anti-platelet therapy given drug-eluting stent (RAQUEL) implantation to mitigate the risk of stent thrombosis. This is not to be stopped for any reason without the guidance of a
compliance auditor.
5. Hydrate with normal saline to mitigate the risk of contrast-induced acute kidney injury.
6. Referral for outpatient cardiac rehab.
7. Echo to assess biventricular function.
Echocardiogram 10/09/2025:
SUMMARY
1. Ejection fraction is 55% by Montemayor's method of discs.
2. Normal left ventricular size, wall thickness and systolic function. No regional wall motion abnormalities are seen.
3. There is mid anteroseptal, anterior, and inferoapical hypokinesis.
Discharge Plan
-
Patient Disposition: Home (Routine Discharge)
Discharge Diagnosis/Procedures: Heart attack/NSTEMI s/p angioplasty and stent to Left Anterior Descending artery
Condition: Good
Diet: Low Fat and Low Cholesterol
Activity: No strenuous activity
Driving Restrictions: No driving for 24 hours
Bathing Restrictions: None
Other Services: Cardiac Rehab
Activity Restrictions/Additional Instructions:
Please follow-up with cardiology on 10/26/2025.
You will be required to take aspirin 81 mg daily indefinitely and prasugrel 10 mg daily for the next 12 months.
Please STOP smoking as this was likely one of the main contributing factors to your heart attack.
Instructions: Quitting smoking for adults
Stand Alone Forms: DC Instructions- Cath/EP Lab
Referrals:
[facility]. Cardiac Rehab [Outside] - 11/12/25 8:30 am
Referral Note: Cardiac Rehab Orientation appointment is on 11/12/25 at 8:30am.
The Cardiac Rehab gym is located on the first floor of the [facility].
NONE,* [Family Provider, Internal Medicine]
Brianda Black PA-C [Specified Professional Personl, Cardiology] - 10/26/25 4:00 pm
Prescriptions:
New
prasugrel HCl 10 mg Tablet
10 mg PO DAILY Qty: 30 11RF
atorvastatin 80 mg Tablet
80 mg PO QPM Qty: 30 11RF
aspirin 81 mg capsule
81 mg PO DAILY Qty: 30 0RF
Discontinued
ibuprofen [Advil] 200 mg Tablet
40 mg PO BIDPRN PRN (Reason: mild pain)
omeprazole 20 mg Tablet,Delayed Release (Dr/Ec)
40 mg PO DAILYPRN PRN (Reason: gerd)
Discharge Orders:
Discharge Patient (As Directed); Ordered 10/10/25
Ordered By: Va Bustos
Care Plan Goals
Care Plan Goals:
Problem: Readiness for enhanced knowledge related to diagnosis and treatment plan
Goal: Understand your diagnosis and treatment plan needs, including medications if applicable.
Instructions: Know your diagnosis, underlying causes and treatment plan options, including medications if applicable. Consult with your health care team to learn about your diagnosis and treatment plan, including medications if applicable.
Discharge Date and Time
Discharge Date/Time: 10/10/25 14:40
Print Language: AFGHAN
== END 2025-10-10 14:40 | disposition home or self-care (01) | DRG 322 ==
LOC: IVU 16:16
PROVIDERS: Internal Medicine Interventional Cardiology; Nurse Practitioner; ADMITTING PHYSICIAN Internal Medicine; CONSULT PHYSICIAN Internal Medicine Cardiovascular Disease; EMERGENCY PHYSICIAN Emergency Medicine
PROC: 027034Z Dilation of Coronary Artery, One Artery with Drug-eluting Intraluminal Device, Percutaneous Approach (ICD-10-PCS; 2025-10-09)
PROC: 4A023N7 Measurement of Cardiac Sampling and Pressure, Left Heart, Percutaneous Approach (ICD-10-PCS; 2025-10-09)
PROC: B240ZZ3 Ultrasonography of Single Coronary Artery, Intravascular (ICD-10-PCS; 2025-10-09)
PROC: B2111ZZ Fluoroscopy of Multiple Coronary Arteries using Low Osmolar Contrast (ICD-10-PCS; 2025-10-09)
DX: I21.4 Non-ST elevation (NSTEMI) myocardial infarction (principal); F41.9 Anxiety disorder, unspecified; F17.210 Nicotine dependence, cigarettes, uncomplicated; Z80.1 Family history of malignant neoplasm of trachea, bronchus and lung; I25.10 Atherosclerotic heart disease of native coronary artery without angina pectoris; I25.2 Old myocardial infarction; Z81.8 Family history of other mental and behavioral disorders; Z82.49 Family history of ischemic heart disease and other diseases of the circulatory system
CPT/HCPCS: 71045; 80053; 80061; 80306; 83036; 84484; 85025; 85027; 85347; 85610; 85730; 92978; 93005; 93306; 93458; 96365; 99152; 99153; 99291; 99406; C1725; C1769; C1874; C9600; Q9967